=== PATIENT | female | born 1975 | race Caucasian/White ===

== ENCOUNTER 2017-02-16 22:50 | Emergency (ER) | payer BC ==
[2017-02-16 23:18] VITALS: BP 130/82
[2017-02-16] MEDS ORDERED: Ondansetron 4 MG Tab.DIS PO ONE (23:30)
[2017-02-16] MEDS ORDERED: Acetaminophen/oxyCODONE 325-5 MG Tab PO ONE (23:30)
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
--- NOTE | 2017-02-17 17:29 | CR ---
Left knee: Four views of the left knee were obtained. Comparison: No previous left knee exam is available. Medial and lateral joint spaces are maintained in height. Minimal osteophytes are noted off the patella. No fracture or other abnormality is appreciated. Impression: 1. Minimal patellar osteophytes. 2. No additional abnormality is identified on left knee study. Diagnostic code #2
--- NOTE | 2017-02-17 17:29 | CR ---
Left ankle: Four views of the left ankle were obtained. Comparison: No previous ankle study. Plantar spur is seen. Spur also noted at the attachment of the Achilles tendon to the calcaneus. Ankle mortise is symmetric. No fracture, dislocation or other bony abnormality is seen. Impression: 1. Calcaneal spurs. 2. No acute bony abnormality is identified on left ankle exam. Diagnostic code #2
== END 2017-02-17 00:36 | disposition home or self-care (01) ==
LOC: JD.ED 22:50
DX: S83.92XA Sprain of unspecified site of left knee, initial encounter (principal); J45.909 Unspecified asthma, uncomplicated; F41.9 Anxiety disorder, unspecified; Z88.2 Allergy status to sulfonamides; Z88.1 Allergy status to other antibiotic agents; Z91.09 Other allergy status, other than to drugs and biological substances; Z79.899 Other long term (current) drug therapy; Z90.49 Acquired absence of other specified parts of digestive tract; Z98.890 Other specified postprocedural states; X50.9XXA Other and unspecified overexertion or strenuous movements or postures, initial encounter; W01.0XXA Fall on same level from slipping, tripping and stumbling without subsequent striking against object, initial encounter
CPT/HCPCS: 73564; 73610; 99283; A9270